=== PATIENT | male | born 1940 | race Caucasian/White ===

== ENCOUNTER 2018-08-09 18:05 | Inpatient (IN) | payer OTHER ==
[~2018-08-09] VITALS: Ht 182.9 cm; Wt 58.1 kg
[~2018-08-09 18:05] MED LIST: HYDURE500 PO; PAIN PILL
[2018-08-09 18:49] LABS: PCO2 Arterial 44.6 mmHg (35-45); PO2 Arterial 63.1 mmHg (80-100); pH Blood Arterial 7.38 (7.35-7.45)
[2018-08-09 18:55] LABS: BASOPHILS ABSOLUTE AUTO 0.09 K/mm3 (0.00-0.23); BASOPHILS PERCENT AUTO 0 % (0-2); EOSINOPHILS PERCENT AUTO 0 % (0-6); Hematocrit 54.2 % (37.0-53.0); Hemoglobin 17.5 g/dL (13.5-17.5); IMMATURE GRAN ABSOLUTE AUTO 0.22 K/mm3 (0.00-0.10); IMMATURE GRAN PERCENT AUTO 1 % (0-1); LYMPHOCYTES ABSOLUTE AUTO 1.29 K/mm3 (0.84-5.20); LYMPHOCYTES PERCENT AUTO 5 % (21-46); MONOCYTES ABSOLUTE AUTO 2.18 K/mm3 (0.16-1.47); MONOCYTES PERCENT AUTO 9 % (4-13); Mean Corpuscular HGB Conc 32.3 g/dL (31.5-36.5); Mean Corpuscular Volume 96 fL (80-100); Mean Platelet Volume 10.1 fL (9.1-12.4); NEUTROPHILS PERCENT AUTO 84 % (41-73); Platelet Count 482 K/mm3 (150-400); RDW Coefficient Variation 14.2 % (11.7-14.2); RDW Standard Deviation 51.3 fL (35.1-46.3); Red Blood Cell Count 5.65 M/mm3 (4.30-5.90); White Blood Cell Count 23.78 K/mm3 (4.00-11.30)
[2018-08-09 19:05] LABS: Alanine Aminotransfer (ALT/SGP 17 U/L (12-78); Albumin, Blood 2.7 g/dL (3.4-5.0); Albumin/Globulin Ratio 0.7 (0.8-1.8); Alk Phos 62 U/L (50-136); Anion Gap 14 mmol/L (6-16); Aspartate Aminotrans (AST/SGOT 40 U/L (12-37); Bilirubin, Total 0.8 mg/dL (0.1-1.0); Blood Urea Nitrogen 15 mg/dL (8-24); Bun/Creatinine Ratio 21.1 (12.0-20.0); CO2, Blood 17 mmol/L (21-32); Calcium, Blood 6.2 mg/dL (8.5-10.1); Chloride, Blood 96 mmol/L (98-108); Creatinine, Blood 0.71 mg/dL (0.60-1.20); Globulin, Blood 4.1 g/dL (2.2-4.0); Glomerular Filtration Rate >60 (60-); Glucose, Blood 65 mg/dL (70-99); Potassium, Blood 4.7 mmol/L (3.5-5.5); Sodium, Blood 127 mmol/L (136-145); Total Protein, Blood 6.8 g/dL (6.4-8.2); Troponin I <0.015 ng/mL (0.000-0.040)
[2018-08-09 22:37] LABS: Influenza A Positive (NEGATIVE); Influenza B Negative (NEGATIVE)
[2018-08-10 03:58] LABS: Hematocrit 48.2 % (37.0-53.0); Hemoglobin 15.6 g/dL (13.5-17.5); Mean Corpuscular HGB 31.1 pg (26.0-34.0); Mean Corpuscular HGB Conc 32.4 g/dL (31.5-36.5); Mean Corpuscular Volume 96 fL (80-100); Mean Platelet Volume 9.9 fL (9.1-12.4); Platelet Count 359 K/mm3 (150-400); RDW Coefficient Variation 14.4 % (11.7-14.2); RDW Standard Deviation 50.6 fL (35.1-46.3); Red Blood Cell Count 5.02 M/mm3 (4.30-5.90); White Blood Cell Count 17.13 K/mm3 (4.00-11.30)
[2018-08-10 04:13] LABS: International Normalized Ratio 1.09; Prothrombin Time Results 11.5 Sec (9.7-11.5)
[2018-08-10 04:25] LABS: Anion Gap 6 mmol/L (6-16); Blood Urea Nitrogen 20 mg/dL (8-24); Bun/Creatinine Ratio 24.8 (12.0-20.0); CO2, Blood 26 mmol/L (21-32); Calcium, Blood 7.1 mg/dL (8.5-10.1); Chloride, Blood 98 mmol/L (98-108); Creatinine, Blood 0.81 mg/dL (0.60-1.20); Glomerular Filtration Rate >60 (60-); Glucose, Blood 191 mg/dL (70-99); Potassium, Blood 4.1 mmol/L (3.5-5.5); Sodium, Blood 130 mmol/L (136-145)
--- NOTE | 2018-08-10 14:23 | NUR ---
NOTE PT VISITING WITH FAMILY. SR. VSS. UNSTEADY WHEN UP. BSC D/T OXYGEN REQUIREMENTS. LUNGS DECREASED T/O. NO COUGH NOTED. BED ALARM ON D/T MULIPLE EVENTS OF CLIMBING OOB. PT CAN WORK THE REMOTE FOR THE TV BUT CHOICES TO NOT USE THE NURSE CALL BUTTON WHEN HE GETS UP. PT HAS REFUSED TO TAKE HIS JEANS OFF. FAMILY OFFERD TO BRING SWEATS IN. HE DECLINED. CIWA 0. PT DID DRINK THE BEER ON HIS LUNCH TRAY. CONTINUE POT.
[2018-08-11 04:22] LABS: Hematocrit 44.7 % (37.0-53.0); Hemoglobin 14.5 g/dL (13.5-17.5); Mean Corpuscular HGB 31.3 pg (26.0-34.0); Mean Corpuscular HGB Conc 32.4 g/dL (31.5-36.5); Mean Corpuscular Volume 96 fL (80-100); Mean Platelet Volume 10.6 fL (9.1-12.4); Platelet Count 368 K/mm3 (150-400); RDW Coefficient Variation 14.1 % (11.7-14.2); RDW Standard Deviation 50.7 fL (35.1-46.3); Red Blood Cell Count 4.64 M/mm3 (4.30-5.90); White Blood Cell Count 22.93 K/mm3 (4.00-11.30)
[2018-08-11 04:41] LABS: Anion Gap 7 mmol/L (6-16); Blood Urea Nitrogen 15 mg/dL (8-24); Bun/Creatinine Ratio 22.2 (12.0-20.0); CO2, Blood 24 mmol/L (21-32); Chloride, Blood 99 mmol/L (98-108); Creatinine, Blood 0.68 mg/dL (0.60-1.20); Glomerular Filtration Rate >60 (60-); Glucose, Blood 205 mg/dL (70-99); Potassium, Blood 3.8 mmol/L (3.5-5.5); Sodium, Blood 130 mmol/L (136-145)
[2018-08-11 05:00] LABS: BAND PERCENT MAN 17 % (0-8); BASOPHILS PERCENT MAN 0 % (0-2); EOSINOPHILS PERCENT MAN 0 % (0-6); LYMPHOCYTES ABSOLUTE MAN 0.91 K/mm3 (0.84-5.20); LYMPHOCYTES PERCENT MAN 4 % (21-46); METAMYELOCYTE ABSOLUTE MAN 0.22 K/mm3 (0.00-0.00); METAMYELOCYTE PERCENT MAN 1 % (0-0); MONOCYTES ABSOLUTE MAN 0.45 K/mm3 (0.16-1.47); MONOCYTES PERCENT MAN 2 % (4-13); NEUTROPHILS ABSOLUTE MAN 21.32 K/mm3 (1.96-9.15); SEG NEUTROPHILS PERCENT MAN 76 % (41-73); TOTAL CELLS COUNTED 100
--- NOTE | 2018-08-11 17:28 | NUR ---
PT ARRIVED TO UNIT FROM PCU. RESTING IN BED. DENIES PAIN, N/V AND SOB. DENIES ANY NEEDS AT THIS TIME. CALL LIGHT IN REACH.
[2018-08-12 05:12] LABS: BASOPHILS ABSOLUTE AUTO 0.04 K/mm3 (0.00-0.23); BASOPHILS PERCENT AUTO 0 % (0-2); EOSINOPHILS PERCENT AUTO 0 % (0-6); Hematocrit 47.1 % (37.0-53.0); Hemoglobin 15.3 g/dL (13.5-17.5); IMMATURE GRAN ABSOLUTE AUTO 0.35 K/mm3 (0.00-0.10); IMMATURE GRAN PERCENT AUTO 1 % (0-1); LYMPHOCYTES PERCENT AUTO 3 % (21-46); MONOCYTES ABSOLUTE AUTO 0.28 K/mm3 (0.16-1.47); MONOCYTES PERCENT AUTO 1 % (4-13); Mean Corpuscular HGB 30.8 pg (26.0-34.0); Mean Corpuscular HGB Conc 32.5 g/dL (31.5-36.5); Mean Corpuscular Volume 95 fL (80-100); Mean Platelet Volume 10.9 fL (9.1-12.4); NEUTROPHILS ABSOLUTE AUTO 23.62 K/mm3 (1.96-9.15); NEUTROPHILS PERCENT AUTO 94 % (41-73); Platelet Count 377 K/mm3 (150-400); RDW Coefficient Variation 14.1 % (11.7-14.2); RDW Standard Deviation 49.6 fL (35.1-46.3); Red Blood Cell Count 4.96 M/mm3 (4.30-5.90); White Blood Cell Count 25.09 K/mm3 (4.00-11.30)
[2018-08-12 05:42] LABS: Albumin, Blood 2.5 g/dL (3.4-5.0); Anion Gap 6 mmol/L (6-16); Blood Urea Nitrogen 14 mg/dL (8-24); Bun/Creatinine Ratio 21.9 (12.0-20.0); CO2, Blood 25 mmol/L (21-32); Calcium, Blood 7.5 mg/dL (8.5-10.1); Chloride, Blood 100 mmol/L (98-108); Creatinine, Blood 0.64 mg/dL (0.60-1.20); Glomerular Filtration Rate >60 (60-); Glucose, Blood 128 mg/dL (70-99); Phosphorus, Blood 1.6 mg/dL (2.5-4.9); Potassium, Blood 4.4 mmol/L (3.5-5.5); Sodium, Blood 131 mmol/L (136-145)
--- NOTE | 2018-08-12 05:57 | NUR ---
SUMMARY PT SLEPT MOST OF NIGHT. NO S/S/ OF DTS AT PRESENT.REPORTS BREATHING IS CONTINUING TO IMPROVE SINCE ADMIT.
--- NOTE | 2018-08-12 17:28 | NUR ---
SUMMARY NO ACUTE CHANGES T/O SHIFT. PT BECOMES SOB W/EXERTION. HAS HARSH HACKING COUGH AT TIMES. POOR APPETITE. VSS. CALL LIGHT IN REACH. USES CALL LIGHT APPROPRIATELY.
[2018-08-13 05:04] LABS: BASOPHILS ABSOLUTE AUTO 0.05 K/mm3 (0.00-0.23); BASOPHILS PERCENT AUTO 0 % (0-2); EOSINOPHILS PERCENT AUTO 0 % (0-6); Hematocrit 47.3 % (37.0-53.0); Hemoglobin 15.4 g/dL (13.5-17.5); IMMATURE GRAN ABSOLUTE AUTO 0.48 K/mm3 (0.00-0.10); IMMATURE GRAN PERCENT AUTO 2 % (0-1); LYMPHOCYTES PERCENT AUTO 4 % (21-46); MONOCYTES ABSOLUTE AUTO 0.31 K/mm3 (0.16-1.47); MONOCYTES PERCENT AUTO 1 % (4-13); Mean Corpuscular HGB 30.9 pg (26.0-34.0); Mean Corpuscular HGB Conc 32.6 g/dL (31.5-36.5); Mean Corpuscular Volume 95 fL (80-100); Mean Platelet Volume 10.7 fL (9.1-12.4); NEUTROPHILS ABSOLUTE AUTO 19.77 K/mm3 (1.96-9.15); NEUTROPHILS PERCENT AUTO 93 % (41-73); Platelet Count 421 K/mm3 (150-400); RDW Coefficient Variation 14.1 % (11.7-14.2); RDW Standard Deviation 49.4 fL (35.1-46.3); Red Blood Cell Count 4.98 M/mm3 (4.30-5.90); White Blood Cell Count 21.41 K/mm3 (4.00-11.30)
--- NOTE | 2018-08-13 05:07 | NUR ---
PT HAD NO ACUTE CHANGES T/O NIGHT. SATS >90% ON 3LNC. PT DENIED SOB AT REST, IS DYPSNEIC W/EXERTION. COUGH OCC PROD W/THICK SPUTUM PER PT. I/S USE ENC. PT DENIED PAIN/N/V, CONT TO REP DEC APPETITE. CIWAA 1. PT USING CALL LIGHT FOR ASSISTANCE, WILL CONT TO MONITOR UNTIL REP GIVEN TO ONCOMING RN.
[2018-08-13 05:32] LABS: Albumin, Blood 2.4 g/dL (3.4-5.0); Anion Gap 5 mmol/L (6-16); Blood Urea Nitrogen 16 mg/dL (8-24); Bun/Creatinine Ratio 27.9 (12.0-20.0); CO2, Blood 26 mmol/L (21-32); Calcium, Blood 7.3 mg/dL (8.5-10.1); Chloride, Blood 102 mmol/L (98-108); Creatinine, Blood 0.57 mg/dL (0.60-1.20); Glomerular Filtration Rate >60 (60-); Glucose, Blood 113 mg/dL (70-99); Phosphorus, Blood 2.4 mg/dL (2.5-4.9); Potassium, Blood 4.3 mmol/L (3.5-5.5); Sodium, Blood 133 mmol/L (136-145)
--- NOTE | 2018-08-13 15:54 | NUR ---
patients daughter taking patient for a ride in a wheelchair. patient wearing mask outside of room and discussed with patient and patients daughter the need to wear mask
--- NOTE | 2018-08-13 18:14 | NUR ---
SUMMARY PATIENT DENIES ANY PAIN OR SHORTNESS OF BREATH. PATIENT HOPING TO BE DISCHARGED HOME TOMORROW. CIWA SCORE 0 THROUGHOUT SHIFT
[2018-08-14 06:00] LABS: BASOPHILS ABSOLUTE AUTO 0.07 K/mm3 (0.00-0.23); BASOPHILS PERCENT AUTO 0 % (0-2); EOSINOPHILS PERCENT AUTO 0 % (0-6); Hematocrit 50.9 % (37.0-53.0); Hemoglobin 16.8 g/dL (13.5-17.5); IMMATURE GRAN ABSOLUTE AUTO 0.66 K/mm3 (0.00-0.10); IMMATURE GRAN PERCENT AUTO 4 % (0-1); LYMPHOCYTES ABSOLUTE AUTO 0.66 K/mm3 (0.84-5.20); LYMPHOCYTES PERCENT AUTO 4 % (21-46); MONOCYTES ABSOLUTE AUTO 0.57 K/mm3 (0.16-1.47); MONOCYTES PERCENT AUTO 3 % (4-13); Mean Corpuscular HGB 30.9 pg (26.0-34.0); Mean Corpuscular Volume 94 fL (80-100); Mean Platelet Volume 10.5 fL (9.1-12.4); NEUTROPHILS ABSOLUTE AUTO 14.87 K/mm3 (1.96-9.15); NEUTROPHILS PERCENT AUTO 88 % (41-73); Platelet Count 469 K/mm3 (150-400); RDW Coefficient Variation 14.2 % (11.7-14.2); RDW Standard Deviation 48.2 fL (35.1-46.3); Red Blood Cell Count 5.44 M/mm3 (4.30-5.90); White Blood Cell Count 16.83 K/mm3 (4.00-11.30)
--- NOTE | 2018-08-14 06:10 | NUR ---
SHIFT SUMAMRY PT RESTED WELL T/O NIGHT. AAOX4. DENIES PAIN/NAUSEA. OXYGEN INCREASED THIS AM FROM 1.5L TO 2L POST AM VITAL SIGNS. PT ENCOURAGED TO DEEP BREATHE + USE IS/FLUTTER TOLERATED. PT RESTING WELL THIS AM. CALL LIGHT IN REACH + PT USES FOR ASSISTANCE.
[2018-08-14 06:56] LABS: Albumin, Blood 2.7 g/dL (3.4-5.0); Anion Gap 6 mmol/L (6-16); Blood Urea Nitrogen 17 mg/dL (8-24); Bun/Creatinine Ratio 26.9 (12.0-20.0); CO2, Blood 29 mmol/L (21-32); Calcium, Blood 7.6 mg/dL (8.5-10.1); Chloride, Blood 99 mmol/L (98-108); Creatinine, Blood 0.63 mg/dL (0.60-1.20); Glomerular Filtration Rate >60 (60-); Glucose, Blood 81 mg/dL (70-99); Phosphorus, Blood 2.7 mg/dL (2.5-4.9); Potassium, Blood 4.1 mmol/L (3.5-5.5); Sodium, Blood 134 mmol/L (136-145)
--- NOTE | 2018-08-14 09:26 | NUR ---
DR CANCINO RECENTLY HERE, REPORTS LS COARSE, O2 INCREASED TO 3L02NC. PT BIOX 90%
--- NOTE | 2018-08-14 10:57 | NUR ---
RECENT LUNG SOUNDS O2 LEVEL PT LS NOT COARSE AT THIS TIME. PT BEEN RESTING IN BED. PT REPORTS SOB BETTER AT THIS TIME. PT O2 LEVEL 97% ON 3L02NC, DECREASED O2 TO 2LO2NC BIOX 96%. DISCUSSED ORDERS WITH RT.
--- NOTE | 2018-08-14 16:25 | NUR ---
SHIFT SUMMARY PT BEEN EATING AND DRINKING, VOIDING. BEEN ASSISTED WITH ADL'S PRN. RT BEEN IN ROOM AND EDUCATED PT. PT BEEN OUT OF ROOM IN W/C WITH CORRECT PRECAUTIONS IN PLACE. PT REPORTS "BREATHING ABOUT THE SAME". PT 02 LEVEL 1.5-2 NC. WHEN PT WAS OUT OF ROOM PT HAD O2 IN PLACE. FAMILY IN ROOM MOST OF DAY.
--- NOTE | 2018-08-14 17:38 | NUR ---
PT REQ TO NOT HAVE CBG'S CHECKED ANY LONGER. DISCUSSED WITH DR CANCINO. SEE ORDERS.
[2018-08-15 05:00] LABS: Hematocrit 53.7 % (37.0-53.0); Hemoglobin 17.4 g/dL (13.5-17.5); Mean Corpuscular HGB 30.7 pg (26.0-34.0); Mean Corpuscular HGB Conc 32.4 g/dL (31.5-36.5); Mean Corpuscular Volume 95 fL (80-100); Mean Platelet Volume 10.5 fL (9.1-12.4); Platelet Count 598 K/mm3 (150-400); RDW Coefficient Variation 13.8 % (11.7-14.2); RDW Standard Deviation 48.4 fL (35.1-46.3); Red Blood Cell Count 5.67 M/mm3 (4.30-5.90); White Blood Cell Count 22.26 K/mm3 (4.00-11.30)
--- NOTE | 2018-08-15 05:06 | NUR ---
SHIFT SUMMARY PT RESTED WELL T/O NIGHT. AAOX4. PT DENIES DISCOMFORT/NAUSEA. SOB WITH EXERTION + COUGHING SPELLS. NON-PRODUCTIVE COUGH THIS SHIFT. 1.5L VIA NC, LUNG SOUNDS COARSE T/O. PT ENCOURAGED TO USE IS + FLUTTER. CALL LIGHT IN REACH + PT USES FOR ASSISTANCE.
[2018-08-15 05:27] LABS: Anion Gap 4 mmol/L (6-16); Blood Urea Nitrogen 17 mg/dL (8-24); Bun/Creatinine Ratio 25.5 (12.0-20.0); CO2, Blood 31 mmol/L (21-32); Calcium, Blood 7.7 mg/dL (8.5-10.1); Chloride, Blood 98 mmol/L (98-108); Creatinine, Blood 0.67 mg/dL (0.60-1.20); Glomerular Filtration Rate >60 (60-); Glucose, Blood 122 mg/dL (70-99); Potassium, Blood 4.4 mmol/L (3.5-5.5); Sodium, Blood 133 mmol/L (136-145)
[2018-08-15] MEDS ORDERED: ACET325 PO (12:12)
[2018-08-15] MEDS ORDERED: GUAIFENESIN ER600 MG PO (12:13)
[2018-08-15] MEDS ORDERED: FOLI1 PO (12:13)
[2018-08-15] MEDS ORDERED: OMEPRAZOLE20 MG PO (12:16)
[2018-08-15] MEDS ORDERED: LEVO750 PO (12:17)
[2018-08-15] MEDS ORDERED: DULERA 200 MCG/13 GM INH (12:47)
[2018-08-15] MEDS ORDERED: DELTASONE20 MG PO (12:50)
[2018-08-15] MEDS ORDERED: TIOT18 INH (12:50)
[2018-08-15] MEDS ORDERED: ALBU3IS INH (12:55)
--- NOTE | 2018-08-15 15:25 | NUR ---
PATIENT D/C'D HOME AT THIS TIME WITH DAUGHTER; BOTH STATE UNDERSTANDING OF MEDICATIONS, OXYGEN, NEBS, F/U APPTS, ETC. [facility] DELIVERED PORTABLE O2. PATIENT W/O C/O AT THIS TIME.
== END 2018-08-15 15:25 | disposition home or self-care (01) | DRG 871 ==
LOC: ER 18:05 → PCU 19:53 → SURS 08-11 17:23
PROVIDERS: Emergency Medicine; Family Medicine; Internal Medicine; Nurse Practitioner Acute Care; ADMIT Internal Medicine
PROC: 5A09357 Assistance with Respiratory Ventilation, Less than 24 Consecutive Hours, Continuous Positive Airway Pressure (ICD-10-PCS; principal; 2018-08-09)
DX: A41.9 Sepsis, unspecified organism (principal); J96.01 Acute respiratory failure with hypoxia; E43 Unspecified severe protein-calorie malnutrition; J18.1 Lobar pneumonia, unspecified organism; E87.1 Hypo-osmolality and hyponatremia; Z68.1 Body mass index [BMI] 19.9 or less, adult; R64 Cachexia; J43.9 Emphysema, unspecified; F17.210 Nicotine dependence, cigarettes, uncomplicated; E16.2 Hypoglycemia, unspecified; F10.20 Alcohol dependence, uncomplicated; E87.8 Other disorders of electrolyte and fluid balance, not elsewhere classified; J10.1 Influenza due to other identified influenza virus with other respiratory manifestations; R65.20 Severe sepsis without septic shock
CPT/HCPCS: 36415; 36600; 71045; 80048; 80053; 80069; 82330; 82803; 82947; 83605; 83735; 83880; 84145; 84484; 85025; 85027; 85610; 87040; 87804; 93005; 93010; 94640; 94644; 94660; 94667; 94760; 94761; 94762; 96365; 96366; 96368; 96372-59; 96375; 98960; 99285-25; J0456; J0696; J1100; J1650; J1956; J2920; J2930; J3411; J3475; J3480; J7030; J7042; J7050

== ENCOUNTER 2020-06-05 12:59 | Inpatient (IN) | payer OTHER ==
[~2020-06-05] VITALS: Ht 177.8 cm; Wt 50.1 kg
[~2020-06-05 12:59] MED LIST changes: +ACET325 PO; +ALBU3IS INH; +DELTASONE20 MG PO; +DULERA 200 MCG/13 GM INH; +FOLI1 PO; +GUAIFENESIN ER600 MG PO; +LEVO750 PO; +OMEPRAZOLE20 MG PO; +TIOT18 INH
[2020-06-05 13:33] LABS: BASOPHILS ABSOLUTE AUTO 0.16 K/mm3 (0.00-0.23); BASOPHILS PERCENT AUTO 1 % (0-2); EOSINOPHILS ABSOLUTE AUTO 0.04 K/mm3 (0.00-0.68); EOSINOPHILS PERCENT AUTO 0 % (0-6); Hematocrit 42.4 % (37.0-53.0); IMMATURE GRAN ABSOLUTE AUTO 0.28 K/mm3 (0.00-0.10); IMMATURE GRAN PERCENT AUTO 1 % (0-1); LYMPHOCYTES ABSOLUTE AUTO 0.78 K/mm3 (0.84-5.20); LYMPHOCYTES PERCENT AUTO 2 % (21-46); MONOCYTES ABSOLUTE AUTO 1.49 K/mm3 (0.16-1.47); MONOCYTES PERCENT AUTO 4 % (4-13); Mean Corpuscular HGB 28.8 pg (26.0-34.0); Mean Corpuscular HGB Conc 30.7 g/dL (31.5-36.5); Mean Corpuscular Volume 94 fL (80-100); Mean Platelet Volume 10.3 fL (9.1-12.4); NEUTROPHILS PERCENT AUTO 92 % (41-73); RDW Standard Deviation 48.2 fL (35.1-46.3); Red Blood Cell Count 4.51 M/mm3 (4.30-5.90); White Blood Cell Count 34.45 K/mm3 (4.00-11.30)
[2020-06-05 13:39] LABS: Platelet Count 1280 K/mm3 (150-400)
[2020-06-05 13:46] LABS: Alanine Aminotransfer (ALT/SGP 12 U/L (12-78); Albumin/Globulin Ratio 0.9 (0.8-1.8); Alk Phos 60 U/L (50-136); Anion Gap 4 mmol/L (6-16); Aspartate Aminotrans (AST/SGOT 15 U/L (12-37); Bilirubin, Total 0.6 mg/dL (0.1-1.0); Blood Urea Nitrogen 31 mg/dL (8-24); Bun/Creatinine Ratio 47.8 (12.0-20.0); CO2, Blood 33 mmol/L (21-32); Calcium, Blood 8.6 mg/dL (8.5-10.1); Chloride, Blood 102 mmol/L (98-108); Creatinine, Blood 0.65 mg/dL (0.60-1.20); Globulin, Blood 3.4 g/dL (2.2-4.0); Glomerular Filtration Rate >60 (60-); Glucose, Blood 100 mg/dL (70-99); Potassium, Blood 3.6 mmol/L (3.5-5.5); Sodium, Blood 139 mmol/L (136-145); Total Protein, Blood 6.4 g/dL (6.4-8.2); Troponin I <0.015 ng/mL (0.000-0.040)
[2020-06-05 15:31] LABS: Influenza A, PCR Negative (NEGATIVE); Influenza B, PCR Negative (NEGATIVE); Resp Syncytial Virus, PCR Negative (NEGATIVE); SARS-Cov-2 (COVID-19) PCR, MMC Negative (NEGATIVE)
[2020-06-05 18:15] LABS: Source, Urine Clean Catch
[2020-06-05 18:23] LABS: Appearance, Urine Clear (Clear); Bilirubin, Urine Neg (Neg); Blood, Urine 1+ (Neg); Color, Urine Yellow (P-Yellow); Glucose Qualitative, Urine Neg (Neg); Ketones, Urine 2+ (Neg); Leukocyte Esterase, Urine Neg (Neg); Nitrite, Urine Neg (Neg); Protein, Urine 2+ (Neg); Urobilinogen, Urine NORM (Normal)
[2020-06-05 18:32] LABS: Bacteria Rare /hpf; Squamous Epithelial Cells Not Seen /hpf (Few); White Blood Cells, Urine 0-2 /hpf (0-5)
[2020-06-05 18:37] LABS: Mucus Light (0-Heavy)
--- NOTE | 2020-06-05 19:26 | NUR ---
ADMIT NOTE RECEIVED REPORT FROM JOSE MANUEL FISHER IN ED. PT TO ROOM VIA JOSEF; 1 PERSON ASSIST TO BED. PT AND SON ORIENTED TO ROOM AND CALL LIGHT. EDUCATED ON FALL RISK AND USE OF BED ALARM. PT ALERT AND ORIENTED x4; COOPERATIVE WITH CARE. CONSTANTLY ASKING TO TURN ON THE FOOTBALL GAME. PT DENIES SOB; TACHYPNIC, LABORED BREATHING, RETRACTING INTERCOSTAL AND SUBSTERNAL; LS DIM BASES; SPO2 >92% ON 3L O2 VIA NC. PT REPORTS O2 USE AT HOME 3-4L NEEDED. PT REPORTS RECTAL PAIN AND COCCYX PAIN, REPOSITIONED PT FOR COMFORT. REDNESS TO COCCYX NOTED; MEPILEX IN PLACE; PICTURES IN CHART. FOAM PLACED TO BILATERAL HEELS. SMALL SMEAR NOTED ON ASSESSMENT, PT CLEANED; STOOL BROWN AND PASTY. PER SONGRAEME, AT BEDSIDE, SISTER MARIANO IS PT POA AND HAS COPY OF ADVANCED DIRECTIVE AND WILL BRING IN COPY TOMORROW. VSS. NO OTHER ACUTE CHANGES NOTED DURING SHIFT. REPORT GIVEN TO ONCOMING RN. DURING BEDSIDE REPORT PT ATTEMPTING TO EAT MECH/SOFT DINNER AND COUGHING WITH EACH BITE; TRAY REMOVED.
[2020-06-06 03:47] LABS: BASOPHILS ABSOLUTE AUTO 0.15 K/mm3 (0.00-0.23); BASOPHILS PERCENT AUTO 1 % (0-2); EOSINOPHILS ABSOLUTE AUTO 0.18 K/mm3 (0.00-0.68); EOSINOPHILS PERCENT AUTO 1 % (0-6); Hemoglobin 11.8 g/dL (13.5-17.5); IMMATURE GRAN ABSOLUTE AUTO 0.13 K/mm3 (0.00-0.10); IMMATURE GRAN PERCENT AUTO 1 % (0-1); LYMPHOCYTES ABSOLUTE AUTO 1.14 K/mm3 (0.84-5.20); LYMPHOCYTES PERCENT AUTO 5 % (21-46); MONOCYTES ABSOLUTE AUTO 1.01 K/mm3 (0.16-1.47); MONOCYTES PERCENT AUTO 5 % (4-13); Mean Corpuscular HGB 28.6 pg (26.0-34.0); Mean Corpuscular HGB Conc 30.3 g/dL (31.5-36.5); Mean Corpuscular Volume 95 fL (80-100); Mean Platelet Volume 10.3 fL (9.1-12.4); NEUTROPHILS ABSOLUTE AUTO 19.67 K/mm3 (1.96-9.15); NEUTROPHILS PERCENT AUTO 88 % (41-73); RDW Coefficient Variation 13.9 % (11.7-14.2); RDW Standard Deviation 48.7 fL (35.1-46.3); Red Blood Cell Count 4.12 M/mm3 (4.30-5.90); White Blood Cell Count 22.28 K/mm3 (4.00-11.30)
[2020-06-06 03:50] LABS: Platelet Count 1144 K/mm3 (150-400)
[2020-06-06 04:06] LABS: Magnesium, Blood 2.5 mg/dL (1.6-2.4)
[2020-06-06 04:09] LABS: Alanine Aminotransfer (ALT/SGP <6 U/L (12-78); Albumin, Blood 2.5 g/dL (3.4-5.0); Albumin/Globulin Ratio 0.8 (0.8-1.8); Alk Phos 54 U/L (50-136); Anion Gap 4 mmol/L (6-16); Aspartate Aminotrans (AST/SGOT 7 U/L (12-37); Bilirubin, Total 0.3 mg/dL (0.1-1.0); Blood Urea Nitrogen 28 mg/dL (8-24); Bun/Creatinine Ratio 34.8 (12.0-20.0); CO2, Blood 35 mmol/L (21-32); Chloride, Blood 105 mmol/L (98-108); Globulin, Blood 3.2 g/dL (2.2-4.0); Glomerular Filtration Rate >60 (60-); Glucose, Blood 94 mg/dL (70-99); Potassium, Blood 3.4 mmol/L (3.5-5.5); Sodium, Blood 144 mmol/L (136-145); Total Protein, Blood 5.7 g/dL (6.4-8.2)
--- NOTE | 2020-06-06 05:48 | NUR ---
SHIFT SUMMARY PT A&O X4. VSS. MONITOR SHOWS NSR, HR 70's. SPO2 > 92% ON 4L NC. CIWA: 0 T/O SHIFT. PT NOT TOLERATING MECH SOFT DINNER TRAY, CHOKING & COUGHING W/ EACH BITE TAKEN, THOUGH SITTING COMPLETELY UPRIGHT. TRAY REMOVED & PT SUPERVISED W/ SIPS OF LIQUIDS ONLY REMAINDER OF SHIFT W/ SOME COUGHING AT TIMES. PT COCCYX VERY RED. MEPILEX REMAINS IN PLACE. PT SBA TO BSC, TOLERATING WELL. Q2H REPOSITIONING WHILE IN BED. WILL CONTINUE TO MONITOR & PROVIDE CARE UNTIL REPORT OFF TO DAY SHIFT RN.
--- NOTE | 2020-06-06 14:33 | NUR ---
Patient has given this student nurse Brennan Colon permission to provide care from [phone]
--- NOTE | 2020-06-06 19:20 | NUR ---
SHIFT SUMMARY: NO ACUTE CHANGES T/OUT SHIFT. PT CONTINUES A&OX4, RESP EVEN AND UNLABORED, SINUS RHYTHM ON MONITOR. CIWA SCORES CONTINUE TO BE 0, NO MEDICATION INTERVENTION REQUIRED. PT REPOSITIONED TOLERATED, SPEECH THERAPY EVAL HAS BEEN ORDERED. REPORT GIVEN TO JOSE MANUEL MARISCAL TO ASSUME CARE OF PT.
[2020-06-07 03:46] LABS: BASOPHILS ABSOLUTE AUTO 0.11 K/mm3 (0.00-0.23); BASOPHILS PERCENT AUTO 1 % (0-2); EOSINOPHILS PERCENT AUTO 0 % (0-6); Hematocrit 35.3 % (37.0-53.0); Hemoglobin 10.9 g/dL (13.5-17.5); IMMATURE GRAN ABSOLUTE AUTO 0.17 K/mm3 (0.00-0.10); IMMATURE GRAN PERCENT AUTO 1 % (0-1); LYMPHOCYTES ABSOLUTE AUTO 0.69 K/mm3 (0.84-5.20); LYMPHOCYTES PERCENT AUTO 3 % (21-46); MONOCYTES ABSOLUTE AUTO 0.45 K/mm3 (0.16-1.47); MONOCYTES PERCENT AUTO 2 % (4-13); Mean Corpuscular HGB Conc 30.9 g/dL (31.5-36.5); Mean Corpuscular Volume 94 fL (80-100); Mean Platelet Volume 10.5 fL (9.1-12.4); NEUTROPHILS ABSOLUTE AUTO 22.42 K/mm3 (1.96-9.15); NEUTROPHILS PERCENT AUTO 94 % (41-73); RDW Standard Deviation 48.2 fL (35.1-46.3); Red Blood Cell Count 3.76 M/mm3 (4.30-5.90); White Blood Cell Count 23.84 K/mm3 (4.00-11.30)
[2020-06-07 03:52] LABS: Platelet Count 1051 K/mm3 (150-400)
[2020-06-07 04:06] LABS: Anion Gap 5 mmol/L (6-16); Blood Urea Nitrogen 23 mg/dL (8-24); Bun/Creatinine Ratio 38.9 (12.0-20.0); CO2, Blood 30 mmol/L (21-32); Calcium, Blood 7.9 mg/dL (8.5-10.1); Chloride, Blood 103 mmol/L (98-108); Creatinine, Blood 0.59 mg/dL (0.60-1.20); Glomerular Filtration Rate >60 (60-); Glucose, Blood 150 mg/dL (70-99); Potassium, Blood 4.2 mmol/L (3.5-5.5); Sodium, Blood 138 mmol/L (136-145)
--- NOTE | 2020-06-07 06:32 | NUR ---
SHIFT SUMMARY PT A&O X4. VSS. SPO2 > 92% ON 3L NC. MONITOR SHOWING SR, HR 70's-80's. NO EVENTS OVER NIGHT. NS GTT INFUSING PER ORDERS. CIWA: 0. PT AWAITING MD GARZA CONSULT.
--- NOTE | 2020-06-07 09:54 | NUR ---
ASSUMED CARE, MORNING UPDATE PT WAS AWAKE AND PARTICIPATED DURING MORNING REPORT. PT WAS REPORTED HAVING SOME DIFFICULTLY SWALLOWING AFTER ADMISSION BUT NONE SINCE. PT WAS OBSERVED DURING BREAKFAST AND DID NOT HAVE AN ISSUE. WHILE TAKING MORNING MEDICATIONS PT BEGAN TO CHOKE AND COUGH. RN ERICH GAVE ADDITIONAL MEDS IN APPLESAUCE AND PT CONTINUED TO COUGH; REMAINING MEDS WERE WASTED AND PT WAS OFFERED THICKENED WATER AN ALTERNATIVE. PT REFUSED THICKENED WATER AND IT WAS EXPLAINED THAT HE WAS GOING TO BE KEPT NPO UNTIL SPEECH THERAPY WAS ABLE TO EVALUATE HIM THIS MORNING; PT GAVE VERBAL UNDERSTANDING AND AGREED. VS STABLE; PT ON 4L O2 VIA NC TO MAINTAIN SATS ABOVE 92%. PT RESTING IN BED AWAITING SPEECH THERAPY AT THIS TIME
--- NOTE | 2020-06-07 11:20 | NUR ---
OXYGEN PT HAS BEEN SLEEPING WITH HIS MOUTH OPEN; 3L WAS NOT SUSTAINING ADEQUATE OXYGENATION; I TITRATED O2 UP GRADUALLY TO 5L AND PLACED THE CANNULA IN HIS MOUTH WHILE SLEEPING; O2 SAT IS NOW ABOVE 92%.
--- NOTE | 2020-06-07 14:35 | NUR ---
SWALLOW EVALUATION PT COMPLETED A SWALLOW EVAL THIS MORNING WITH SPEECH THERAPY AND IT WAS DETERMINED THAT THE PT IS NOT TO TAKE ANYTHING PO AT THIS TIME HE IS A HIGH ASPIRATION RISK. PT IS NOW ON CLINIMEX AND AWAITING A NUTIRITION CONSULTATION TO REVIEW NEXT STEPS
--- NOTE | 2020-06-07 15:33 | NUR ---
NUTRITION CONSULT SPOKE ON THE PHONE WITH HOSTESS CASHIER WHO RECOMMENDED FAT EMULSION IN ADDITION TO THE CLINIMIX. HOSTESS CASHIER ALSO SUGGESTED A DOBHOFF OR ANOTHER FORM OF TUBE FEEDING AND THAT PALLIATIVE CARE COULD HELP LAY OUT ALL OF THE OPTIONS FOR THE PATIENT. PALLIATIVE CARE IS CONSULTED AND NUTRITION WILL VISIT WITH PT TOMORROW
[2020-06-07 16:06] LABS: Vancomycin, Trough 5.9 ug/mL (5.0-10.0)
--- NOTE | 2020-06-07 17:15 | NUR ---
Reviewed chart and discussed case with Bedside JOSE MANUEL Alejo. ST has Pt NPO at this time. Pt resting in bed upon arrival. Daughter Cleo at bedside. Pt A&O and denies pain at this time. Pt reports dyspnea has improved. Engaged in therapeutic listening as Pt expresses frustration due to not being allowed to eat. Discussed ST evaluation and plan for continued therapy at this time. Discussed the importance of thinking about future if unsafe swallow becomes permanent. Pt expresses feeling of not wanting tube feedings. Pt discusses importance of eating food and not having a good quality of life if inability to eat. Continued therapeutic listening. Suggested the importance of ST recommendations and waiting for further information. Engaged in therapeutic discussion regarding Pt's COPD and the importance of planning for the future as disease progresses. Educated on disease process including trajector of disease. Discussed hospice as an option at some point of disease process. Engaged in therapeutic discussion regarding code status. Educated on life sustaining treatment including risk factors. Pt reports wanting to be DNR. Daughter Cleo in agreement. Provided POLST for Pt to consider completing. Educated on each section to complete including meaning of options. Daughter will assist Pt in completing POLST. Pt and daughter agreeable for continued Palliative Care visits. Spoke with Bedside JOSE MANUEL Alejo and discussed case. Called and spoke with Dr Tsang. Placed code status order for DNR per V/O from Dr Tsang. Palliative Care will F/U for supportive and therapeutic visits.
--- NOTE | 2020-06-07 19:16 | NUR ---
SHIFT SUMMARY PT COMPLETED A SPEECH THERAPY EVAL THIS MORNING AND WAS MADE NPO SINCE HE IS COUGHING AND CHOKING FREQUENTLY WHILE EATING. AT THIS POINT CLINIMIX AND FAT EMULSION WAS STARTED AND PALLIATIVE CARE AND NUTIRTION WERE CONSULTED. PT WAS VERY UPSET BY THESE CHANGES AND CONTINUED TO STATE THAT HE WANTED TO EAT. PALLIATIVE CARE AND JOSE MANUEL JUNG DISCUSSED OTHER OPTIONS WITH THE PATIENT AND WITH THE DAUGHTER TO SATISFY HIS HUNGER; OPTIONS RECOMMENDED BY NUTRITION WERE DOBHOFF OR PEG TUBE FEEDINGS AND TO CONTINUE SPEECH THERAPY; PT VERBALLY EXPRESSED DISLIKE WITH THESE OPTIONS. PT STATES HE JUST WANTS TO EAT. PALLIATIVE CARE DISCUSSED COMFORT CARE VS DNR WITH THE PATIENT AND LEFT THE PATIENT AND HIS DAUGHTER WITH A POLST FORM TO FILL OUT AND DETERMINE HIS WISHES. THE PT OPTED TO BE COMFORT CARE; WANTING TO FOCUS ON QUALITY OF LIFE AT THIS POINT. JOSE MANUEL JUNG AND DAUGHTER, MARIANO, RETURNED TO THE PT ROOM TO VERIFY THE PT'S UNDERSTANDING AGAIN OF COMFORT CARE VS DNR; PT STATED HE WAS AGREEING TO STOP ALL TREATMENT AND WANTS TO EAT. PT STATES "I DON'T WANT ALL THESE TUBES AND WIRES, I WANT TO EAT AND BE DONE." DR. ALVARADO WAS CONTACTED, PT WAS PLACED ON COMFORT CARE, DR. ALVARADO EXPLAINED THAT HE WOULD MAKE THE SWITCHES TO THE MEDS IN THE MORNING AND AT THIS POINT TO COMPLETE CC INTERVENTIONS AND ALLOW THE PT TO EAT. PT IS CURRENTLY IN HIS ROOM EATING A [facility] SOFT DIET.
--- NOTE | 2020-06-07 21:27 | NUR ---
TRANSFER NOTE PT COMFORT CARE STATUS. A&O X4. PT DENIES PAIN/DISCOMFORT. PT OBSERVED EATING DINNER TRAY, COUGHING WHILE TAKING BITES, BUT HAPPY TO BE EATING. CLINIMIX GTT PLACED ON STANDBY FOR IV ABX INFUSION. PT REPORTS WANTING IV ABX CONTINUED AT THIS TIME. MEDS TO BE FURTHER ADDRESSED FOR CONTINUATION/DISCONTINUATION TOMORROW. REPORT GIVEN TO MEDICAL FLOOR RN ACCEPTING PT. PT TO BE TRANSFERRED TO [address]/ [facility] BY 2 PCT's.
--- NOTE | 2020-06-07 22:20 | NUR ---
PATIENT ARRIVED TO FLOOR FROM PCU 11. WAS TRANSFERRED TO BED USING SLIDER SHEET. ANA IS AOX3, PLEASANT AND COOPERATIVE. DENIES ANY PAIN. LUNG SOUNDS ARE VERY DIMINISHED T/O. DYSPNEA WITH EXERTION. USES URINAL IN BED. NO EDEMA NOTED. COUGH NOTED. DOES COUGH WITH FLUIDS AND FOOD. STATES HE JUST THINKS HIS THROAT MUSCLES HAVE GOTTEN WEAK. ENCOURAGED HIM TO AT LEAST DO THE CHIN TUCK WHEN DRINKING. NEW IV STARTED IN LEFT FA AND RESTARTED CLINIMIX AND FAT EMOLSUIN. OTHER IV INFUSING ANTIBOTICS. DENIES ANY NEEDS AT THIS TIME. CALL LIGHT IS IN REACH.
--- NOTE | 2020-06-08 02:41 | NUR ---
LAYING DOWN SLEEPING, OXYGEN IN HIS MOUTH, IS AWAKE BUT TRYING TO FALL ASLEEP. CALL LIGHT IS IN REACH. DENIES ANY NEEDS.
[2020-06-08 04:49] LABS: BASOPHILS ABSOLUTE AUTO 0.06 K/mm3 (0.00-0.23); BASOPHILS PERCENT AUTO 0 % (0-2); EOSINOPHILS ABSOLUTE AUTO 0.02 K/mm3 (0.00-0.68); EOSINOPHILS PERCENT AUTO 0 % (0-6); Hematocrit 36.9 % (37.0-53.0); Hemoglobin 11.2 g/dL (13.5-17.5); IMMATURE GRAN PERCENT AUTO 1 % (0-1); LYMPHOCYTES ABSOLUTE AUTO 0.57 K/mm3 (0.84-5.20); LYMPHOCYTES PERCENT AUTO 2 % (21-46); MONOCYTES ABSOLUTE AUTO 0.26 K/mm3 (0.16-1.47); MONOCYTES PERCENT AUTO 1 % (4-13); Mean Corpuscular HGB Conc 30.4 g/dL (31.5-36.5); Mean Corpuscular Volume 96 fL (80-100); Mean Platelet Volume 10.7 fL (9.1-12.4); NEUTROPHILS ABSOLUTE AUTO 24.02 K/mm3 (1.96-9.15); NEUTROPHILS PERCENT AUTO 96 % (41-73); RDW Coefficient Variation 13.9 % (11.7-14.2); RDW Standard Deviation 48.7 fL (35.1-46.3); Red Blood Cell Count 3.86 M/mm3 (4.30-5.90); White Blood Cell Count 25.13 K/mm3 (4.00-11.30)
[2020-06-08 04:59] LABS: Platelet Count 1051 K/mm3 (150-400)
[2020-06-08 05:10] LABS: Anion Gap 4 mmol/L (6-16); Blood Urea Nitrogen 23 mg/dL (8-24); Bun/Creatinine Ratio 44.3 (12.0-20.0); CO2, Blood 29 mmol/L (21-32); Calcium, Blood 7.9 mg/dL (8.5-10.1); Chloride, Blood 103 mmol/L (98-108); Creatinine, Blood 0.52 mg/dL (0.60-1.20); Glomerular Filtration Rate >60 (60-); Glucose, Blood 152 mg/dL (70-99); Potassium, Blood 4.9 mmol/L (3.5-5.5); Sodium, Blood 136 mmol/L (136-145)
--- NOTE | 2020-06-08 06:27 | NUR ---
SHIFT SUMMARY: COMFORT CARE PATIENT THAT IS CONTINUEING TO GET CLINIMEX, ANTIBOTICS. PALLATIVE CARE NURSE WILL BE ADDRESSING THIS TODAY AND DOING MED CHANGES. AOX3. LUNG SOUNDS ARE VERY DIMINISHED, COUGH IS OCCATIONAL HACKING, NO PRODUCTION. HE DOES COUGH ALL THE TIME WHEN HE IS DRINKING OR EATING. STATES HE THINKS HIS THROAT MUSCLES HAVE GOTTEN WEAK BUT STATES HE SWALLOWS JUST FINE. TRIED TO EDUCATE BUT HE IS INSISTING HE DOES NOT HAVE A SWALLOW ISSUE. VS WNL. AFEBRILE. WBC THIS AM WAS 25.13. TAKES ALL MEDS WHOLE. PLT COUNT STILL AT 1051 THIS AM. ON 3 LITERS OF O2, HAS TO WEAR IT IN HIS MOUTH MOST OF THE TIME. DYSPNEA WITH MOVEMENT. NO PAIN NOTED. CALL LIGHT IS IN REACH.
--- NOTE | 2020-06-08 11:25 | NUR ---
PT/OT ORDERS DR. ALVARADO BELIEVED PATIENT WILL BENEFIT FROM PT/OT TREATMENT AND WOULD LIKE TO HAVE PT/OT SEE PATIENT. RECEIVED V.O. FOR PT/OT EVAL AND TREAT. ORDERS UPDATED.
--- NOTE | 2020-06-08 11:54 | NUR ---
Pt resting in bed and reports mild but manageable pain in his coccyx area. Pt reports developing pressure sores from spending a lot of time in bed prior to hospital stay. Engaged in therapeutic listening as Pt discusses he decision for comfort care. Continued therapeutic listening and answered questions. Pt completed a POLST when his daughter was visiting yesterday evening. Discussed case with Bedside JOSE MANUEL Soto and Dr Tsang. Plan is for Pt to remain comfort care but will provide antibiotics and PT. Dr Tsang signs POLST. Palliative Care will remain avaialble. Will deliver copy of POLST to medical records.
[2020-06-08 16:31] LABS: Vancomycin, Trough 12.7 ug/mL (5.0-10.0)
--- NOTE | 2020-06-08 16:54 | NUR ---
Spiritual care note: Mr. Palomo is pleasant, conversant, and denies needs. He tells me he "just wants to go home" and live the way he wants. He feels well supported/loved by friends/family. Denied fear. Prayer for healing/peace provided. I will remain available.
--- NOTE | 2020-06-08 18:06 | NUR ---
Shift Summary Ornery but cooperative with care. OT evaluated, patient deemed 1p min SBA. Still coughs frequently to PO intake. 3L O2 per NC, this is baseline. TQ2 and prn for comfort. Denies pain, nausea, vomiting. Preventative mepilex to coccyx changed. Independent with urinal. No additional changes. Bed in lowest position, bed alarm on, call light near. WCTM
--- NOTE | 2020-06-08 19:40 | NUR ---
ASSUMED CARE. ANA REPORTS NO CHANGES TODAY, STATES NO PAIN. RESP ARE FAST AND SHALLOW. ASKED IF HE FEELS HE CAN NOT BREATH. STATES HE IS FEELING FINE. HE IS USING HIS ACCESSORY MUSCLES TO BREATH. STILL CALLED RT TO GET A BREATHING TREATMENT FOR HIM. COUGH IS PRODUCTIVE. STILL COUGHING WHEN DRINKING AND EATING. DENIES ANY NEEDS AT THIS TIME. CALL LIGHT IS IN REACH.
[2020-06-09 04:55] LABS: BASOPHILS ABSOLUTE AUTO 0.04 K/mm3 (0.00-0.23); BASOPHILS PERCENT AUTO 0 % (0-2); EOSINOPHILS ABSOLUTE AUTO 0.01 K/mm3 (0.00-0.68); EOSINOPHILS PERCENT AUTO 0 % (0-6); Hematocrit 37.1 % (37.0-53.0); Hemoglobin 11.3 g/dL (13.5-17.5); IMMATURE GRAN ABSOLUTE AUTO 0.57 K/mm3 (0.00-0.10); IMMATURE GRAN PERCENT AUTO 2 % (0-1); LYMPHOCYTES ABSOLUTE AUTO 0.63 K/mm3 (0.84-5.20); LYMPHOCYTES PERCENT AUTO 3 % (21-46); MONOCYTES ABSOLUTE AUTO 0.97 K/mm3 (0.16-1.47); MONOCYTES PERCENT AUTO 4 % (4-13); Mean Corpuscular HGB 28.6 pg (26.0-34.0); Mean Corpuscular HGB Conc 30.5 g/dL (31.5-36.5); Mean Corpuscular Volume 94 fL (80-100); Mean Platelet Volume 10.6 fL (9.1-12.4); NEUTROPHILS ABSOLUTE AUTO 21.84 K/mm3 (1.96-9.15); NEUTROPHILS PERCENT AUTO 91 % (41-73); RDW Coefficient Variation 13.9 % (11.7-14.2); RDW Standard Deviation 47.7 fL (35.1-46.3); Red Blood Cell Count 3.95 M/mm3 (4.30-5.90); White Blood Cell Count 24.06 K/mm3 (4.00-11.30)
[2020-06-09 04:57] LABS: Platelet Count 1135 K/mm3 (150-400)
--- NOTE | 2020-06-09 06:12 | NUR ---
SHIFT SUMMARY: COMFORT CARE WIHT MEDICAL TREATMENT. HE HAD INCREASE IN RESPIRATION AND SOB AT START OF SHIFT, USING ACCESSORY MUSCLES BUT THIS RESOLVED AFTER BREATHING TREATMENT. THE ENTIRE TIME HE SAID HE FELT FINE. IV IN RIGHT FA WAS DC'D DUE TO PAIN. LEFT AC STILL PATENT AND HAS INFUSED ANTIBOTICS THIS SHIFT. HUMITIFER APPLIED TO OXYGEN OF 5 LITERS DUE TO DRYNESS IN NASAL PASSAGES. GOOD URINE OUTPUT. NO PAIN OR OTHER ACUTE CHANGES. PLATLET COUNT HAS INCREASED TO 1135. WBC 24.06. CALL LIGHT IS IN EACH.
--- NOTE | 2020-06-09 11:23 | NUR ---
Pt resting in bed upon arrival. This RN accompanied by student dean Iraida. Pt appears dyspneic as evidenced by work of breathing and increased respiratory rate. Pt suggests increased dyspnea is due to attempting new breathing exercises. Dr Tsang in to examine Pt. Increased oxygen to 6 L per V/O from Dr Tsang. Discussed case with Dr Tsang outside of Pt's room. Placed order for Roxanol SL 5-10mg Q 3 hours PRN for air hunger. Spoke with Bedside RN Jihan and discussed case. Palliative Care will remain available for symptom management and supportive visits.
[2020-06-09 16:28] LABS: Vancomycin, Trough 16.6 ug/mL (5.0-10.0)
--- NOTE | 2020-06-09 19:16 | NUR ---
SHIFT SUMMARY: ON COMFORT CARE. DENIED PAIN. DYSPNEIC AT REST AT TIMES; ROXANOL ORDERED FOR AIR HUNGER, BUT PATIENT DECLINES WHEN OFFERED. USING URINAL, NO BM THIS SHIFT. OXYGEN INCREASED TO 6 L/MIN NC PER RT. HAS DIFFICULTY SWALLOWING PILLS, EATING ABOUT 50% OF MEALS. DAUGHTER VISITED THIS AFTERNOON.
--- NOTE | 2020-06-10 05:13 | NUR ---
FITNESS ATTENDANT SUMMARY NO ACUTE CHANGES THIS SHIFT. PT AAOX4 AND PLEASANT. STANDBY ASSIST TO THE BSC. CONTINUES ON COMFORT CARE. DENIES PAIN. ON 6L O2 VIA HUMIDIFIED NC. HAS SLEPT OFF/ON THROUGH THE NIGHT WITH NO COMPLAINTS. WILL CONTINUE TO MONITOR.
--- NOTE | 2020-06-10 10:23 | NUR ---
Pt resting in bed upon arrival with his eyes closed. Pt apears comfortable with no S/S of distress at this time. This RN did not disturb Pt at this time. Spoke with Bedside RN Jihan, no concerns reported at this time. Palliative Care will remain available.
--- NOTE | 2020-06-10 19:24 | NUR ---
SHIFT SUMMARY: ON COMFORT CARE. DENIED PAIN. HAVING MORALES, COUGHING WITH PO INTAKE. O2 @ 6 L/MIN NC HUMIDIFIED. HAD VISIT FROM HIS SON TODAY. NO ACUTE EVENTS.
[2020-06-11 04:35] LABS: Hematocrit 39.4 % (37.0-53.0); Hemoglobin 12.1 g/dL (13.5-17.5); Mean Corpuscular HGB 29.4 pg (26.0-34.0); Mean Corpuscular HGB Conc 30.7 g/dL (31.5-36.5); Mean Corpuscular Volume 96 fL (80-100); Mean Platelet Volume 10.3 fL (9.1-12.4); RDW Coefficient Variation 14.1 % (11.7-14.2); RDW Standard Deviation 49.2 fL (35.1-46.3); Red Blood Cell Count 4.12 M/mm3 (4.30-5.90); White Blood Cell Count 22.71 K/mm3 (4.00-11.30)
[2020-06-11 04:39] LABS: Platelet Count 1178 K/mm3 (150-400)
[2020-06-11 04:59] LABS: Alanine Aminotransfer (ALT/SGP 19 U/L (12-78); Albumin, Blood 2.6 g/dL (3.4-5.0); Alk Phos 63 U/L (50-136); Anion Gap 1 mmol/L (6-16); Aspartate Aminotrans (AST/SGOT 16 U/L (12-37); Bilirubin, Total 0.3 mg/dL (0.1-1.0); Blood Urea Nitrogen 21 mg/dL (8-24); Bun/Creatinine Ratio 33.2 (12.0-20.0); CO2, Blood 38 mmol/L (21-32); Calcium, Blood 8.1 mg/dL (8.5-10.1); Chloride, Blood 100 mmol/L (98-108); Creatinine, Blood 0.63 mg/dL (0.60-1.20); Globulin, Blood 2.7 g/dL (2.2-4.0); Glomerular Filtration Rate >60 (60-); Glucose, Blood 89 mg/dL (70-99); Magnesium, Blood 2.5 mg/dL (1.6-2.4); Phosphorus, Blood 2.3 mg/dL (2.5-4.9); Sodium, Blood 139 mmol/L (136-145); Total Protein, Blood 5.3 g/dL (6.4-8.2)
--- NOTE | 2020-06-11 05:53 | NUR ---
LABORATORY SPECIALIST SUMMARY NO ACUTE CHANGES THIS SHIFT. PT AAOX3 AND PLEASANT. REMAINS ON COMFORT CARE MEASURES. DENIES PAIN, SOB, N/V. STILL ON 6L O2 VIA NC. PT HOPEFUL TO BE DISCHARGED HOME THIS WEEKEND. WILL CONTINUE TO MONITOR.
[2020-06-11 16:43] LABS: Vancomycin, Trough 19.1 ug/mL (5.0-10.0)
--- NOTE | 2020-06-11 17:53 | NUR ---
Shift Summary A/Ox3, pleasant and cooperative. Worked with PT, tolerated this well. Calls appropriately. Still continues to cough with food. Family has been bringing in candy bars and cookies for patient. Currently on 5L with sats at 98%. Will attempt to titrate down to baseline of 3L as tolerated. 1p min assist c FWW. No acute changes. Remains on comfort care. WCTM
--- NOTE | 2020-06-11 19:17 | NUR ---
AWAKE. JOKES WITH NURSE. CALL LIGHT IN REACH
--- NOTE | 2020-06-11 21:48 | NUR ---
WATCHING TV. HOB REMAINS ELEVATED FOR BREATHING COMFORT. CALL LIGHT IN REACH
--- NOTE | 2020-06-11 21:49 | NUR ---
AWAKE. IV ANTIBIOTICS INFUSING. NO C/O VOICED. CALL LIGHT IN REACH
--- NOTE | 2020-06-11 23:45 | NUR ---
RESTING QUIETLY. CALL LIGHT IN REACH
--- NOTE | 2020-06-12 03:25 | NUR ---
SHIFT SUMMARY HAS BEEN RESTING QUIETLY WITH FEW INTERRUPTIONS SINCE HS. OCCASIONAL COUGH. IV ANTIBIOTICS INFUSING PER MD ORDERS - SEE MAR FOR DETAILS. CALL LIGHT IN REACH.
[2020-06-12 04:40] LABS: BASOPHILS ABSOLUTE AUTO 0.06 K/mm3 (0.00-0.23); BASOPHILS PERCENT AUTO 0 % (0-2); EOSINOPHILS ABSOLUTE AUTO 0.19 K/mm3 (0.00-0.68); EOSINOPHILS PERCENT AUTO 1 % (0-6); Hematocrit 36.6 % (37.0-53.0); Hemoglobin 11.2 g/dL (13.5-17.5); IMMATURE GRAN ABSOLUTE AUTO 0.65 K/mm3 (0.00-0.10); IMMATURE GRAN PERCENT AUTO 3 % (0-1); LYMPHOCYTES ABSOLUTE AUTO 1.35 K/mm3 (0.84-5.20); LYMPHOCYTES PERCENT AUTO 6 % (21-46); MONOCYTES ABSOLUTE AUTO 0.93 K/mm3 (0.16-1.47); MONOCYTES PERCENT AUTO 4 % (4-13); Mean Corpuscular HGB 28.9 pg (26.0-34.0); Mean Corpuscular HGB Conc 30.6 g/dL (31.5-36.5); Mean Corpuscular Volume 95 fL (80-100); Mean Platelet Volume 10.2 fL (9.1-12.4); NEUTROPHILS ABSOLUTE AUTO 20.64 K/mm3 (1.96-9.15); NEUTROPHILS PERCENT AUTO 87 % (41-73); RDW Coefficient Variation 14.2 % (11.7-14.2); RDW Standard Deviation 49.2 fL (35.1-46.3); Red Blood Cell Count 3.87 M/mm3 (4.30-5.90); White Blood Cell Count 23.82 K/mm3 (4.00-11.30)
[2020-06-12 04:44] LABS: Platelet Count 1110 K/mm3 (150-400)
--- NOTE | 2020-06-12 04:48 | NUR ---
RESTING QUIETLY. CALL LIGHT IN REACH
--- NOTE | 2020-06-12 04:48 | NUR ---
RESTING QUIETLY. CALL LIGHT IN REACH
--- NOTE | 2020-06-12 04:49 | NUR ---
AWAKENED FOR BLOOD DRAW, IV ANTIBIOTICS INFUSING PER MD ORDERS -SEE MAR FOR DETAILS. CALL LIGHT IN REACH
[2020-06-12 04:57] LABS: Anion Gap 4 mmol/L (6-16); Blood Urea Nitrogen 22 mg/dL (8-24); Bun/Creatinine Ratio 36.5 (12.0-20.0); CO2, Blood 35 mmol/L (21-32); Calcium, Blood 7.7 mg/dL (8.5-10.1); Chloride, Blood 100 mmol/L (98-108); Glomerular Filtration Rate >60 (60-); Glucose, Blood 120 mg/dL (70-99); Magnesium, Blood 2.3 mg/dL (1.6-2.4); Phosphorus, Blood 2.1 mg/dL (2.5-4.9); Potassium, Blood 4.2 mmol/L (3.5-5.5); Sodium, Blood 139 mmol/L (136-145)
--- NOTE | 2020-06-12 06:09 | NUR ---
WATCHING TV, DRINKING COFFEE. CALL LIGHT IN REACH
--- NOTE | 2020-06-12 06:19 | NUR ---
AWAKE, REQUESTING BREATHING TREATMENT, RT NOTIFIED AND WILL BE UP SOON. CALL LIGHT IN REACH
[2020-06-12] MEDS ORDERED: HYDURE500 PO (12:36)
[2020-06-12] MEDS ORDERED: GUAI600T33 PO (12:36)
[2020-06-12] MEDS ORDERED: MORP20L SL (12:37)
[2020-06-12] MEDS ORDERED: NICO21TP TOP (12:37)
[2020-06-12] MEDS ORDERED: PRED20 PO (12:37)
[2020-06-12] MEDS ORDERED: OMEP20ER PO (12:38)
[2020-06-12] MEDS ORDERED: IPRAT-ALBUT 0.5-3 ML INH (12:38)
--- NOTE | 2020-06-12 15:15 | NUR ---
Shift Summary Patient discharging to home with HH. Reviewed discharge paperwork with patient and daughter at bedside, copy provided. Meds faxed to preferred pharmacy. Personal belongings sent home. SUB PLANT MANAGER will escort via w/c once patient ready. Patient calls appropriately for needs and has not attempted to climb oob by self. Oxygen titrated to baseline of 3L per NC with sats at 92%. Bandage to coccyx changed. Had 2 formed/soft bm's today. Denies pain. No changes with status.
== END 2020-06-12 15:44 | disposition home health service (06) | DRG 177 ==
LOC: ER 12:59 → PCU 15:21 → MEDS 06-07 22:01
PROVIDERS: Emergency Medicine; Pharmacist; ADMIT Family Medicine
DX: J69.0 Pneumonitis due to inhalation of food and vomit (principal); J96.21 Acute and chronic respiratory failure with hypoxia; J44.0 Chronic obstructive pulmonary disease with (acute) lower respiratory infection; R65.10 Systemic inflammatory response syndrome (SIRS) of non-infectious origin without acute organ dysfunction; J18.9 Pneumonia, unspecified organism; D47.3 Essential (hemorrhagic) thrombocythemia; E87.6 Hypokalemia; F17.210 Nicotine dependence, cigarettes, uncomplicated; J43.9 Emphysema, unspecified; F10.10 Alcohol abuse, uncomplicated; L89.309 Pressure ulcer of unspecified buttock, unspecified stage; Z51.5 Encounter for palliative care
CPT/HCPCS: 0241U; 36415; 71045; 71046; 71250; 80048; 80053; 80202; 81001; 82565; 83605; 83735; 84100; 84145; 84484; 85025; 85027; 87040; 92610; 93005; 93010; 94640; 94760; 94762; 96365; 96374-59; 97110; 97116; 97162; 97165; 97530; 99285-25; A9270; J0456; J0696; J1650; J2543; J2920; J3370; J7030; J7050; J7512; Q2038

== ENCOUNTER → 2020-06-23 | Outpatient (CLI) | payer OTHER ==
[~2020-06-23] MED LIST changes: +ALBU8HFA2 INH; +AZIT250 PO; +Acetaminophen325 M1 PO; +BISA10S PR; +CEFP200 PO; +COLACE100 MG PO; +DILT30 PO; +GUAI600T33 PO; +IPRAT-ALBUT 0.5-3 ML INH; +MORP20L SL; +NICO21TP TOP; +OMEP20ER PO; +ONDA4ODT MM; +PRED20 PO; +SENN187 PO; +VISBIOME 112.51 EACH PO
[2020-06-23 18:05] LABS: BASOPHILS ABSOLUTE AUTO 0.11 K/mm3 (0.00-0.23); BASOPHILS PERCENT AUTO 1 % (0-2); EOSINOPHILS ABSOLUTE AUTO 0.18 K/mm3 (0.00-0.68); EOSINOPHILS PERCENT AUTO 1 % (0-6); Hematocrit 37.3 % (37.0-53.0); Hemoglobin 11.9 g/dL (13.5-17.5); IMMATURE GRAN ABSOLUTE AUTO 0.04 K/mm3 (0.00-0.10); IMMATURE GRAN PERCENT AUTO 0 % (0-1); LYMPHOCYTES ABSOLUTE AUTO 0.89 K/mm3 (0.84-5.20); LYMPHOCYTES PERCENT AUTO 5 % (21-46); MONOCYTES ABSOLUTE AUTO 0.25 K/mm3 (0.16-1.47); MONOCYTES PERCENT AUTO 2 % (4-13); Mean Corpuscular HGB 29.9 pg (26.0-34.0); Mean Corpuscular HGB Conc 31.9 g/dL (31.5-36.5); Mean Corpuscular Volume 94 fL (80-100); Mean Platelet Volume 9.7 fL (9.1-12.4); NEUTROPHILS ABSOLUTE AUTO 15.12 K/mm3 (1.96-9.15); NEUTROPHILS PERCENT AUTO 91 % (41-73); Platelet Count 641 K/mm3 (150-400); RDW Coefficient Variation 15.5 % (11.7-14.2); RDW Standard Deviation 51.4 fL (35.1-46.3); Red Blood Cell Count 3.98 M/mm3 (4.30-5.90); White Blood Cell Count 16.59 K/mm3 (4.00-11.30)
== END | disposition home or self-care (01) ==
LOC: PLD 14:10 → LAB SHORT 14:10
PROVIDERS: Internal Medicine Hematology & Oncology
DX: D47.3 Essential (hemorrhagic) thrombocythemia (principal)
CPT/HCPCS: 85025

== ENCOUNTER → 2020-07-04 | Outpatient (CLI) | payer OTHER ==
[2020-07-04 12:33] LABS: BASOPHILS ABSOLUTE AUTO 0.07 K/mm3 (0.00-0.23); BASOPHILS PERCENT AUTO 1 % (0-2); EOSINOPHILS ABSOLUTE AUTO 0.22 K/mm3 (0.00-0.68); EOSINOPHILS PERCENT AUTO 3 % (0-6); Hematocrit 35.1 % (37.0-53.0); Hemoglobin 11.2 g/dL (13.5-17.5); IMMATURE GRAN ABSOLUTE AUTO 0.08 K/mm3 (0.00-0.10); IMMATURE GRAN PERCENT AUTO 1 % (0-1); LYMPHOCYTES ABSOLUTE AUTO 0.72 K/mm3 (0.84-5.20); LYMPHOCYTES PERCENT AUTO 8 % (21-46); MONOCYTES ABSOLUTE AUTO 0.52 K/mm3 (0.16-1.47); MONOCYTES PERCENT AUTO 6 % (4-13); Mean Corpuscular HGB 30.9 pg (26.0-34.0); Mean Corpuscular HGB Conc 31.9 g/dL (31.5-36.5); Mean Corpuscular Volume 97 fL (80-100); Mean Platelet Volume 10.5 fL (9.1-12.4); NEUTROPHILS ABSOLUTE AUTO 7.06 K/mm3 (1.96-9.15); NEUTROPHILS PERCENT AUTO 82 % (41-73); Platelet Count 435 K/mm3 (150-400); RDW Coefficient Variation 18.6 % (11.7-14.2); RDW Standard Deviation 51.7 fL (35.1-46.3); Red Blood Cell Count 3.63 M/mm3 (4.30-5.90); White Blood Cell Count 8.67 K/mm3 (4.00-11.30)
== END | disposition home or self-care (01) ==
LOC: PLD 11:20 → LAB SHORT 11:20
PROVIDERS: Family Medicine
DX: J43.9 Emphysema, unspecified (principal)
CPT/HCPCS: 85025

== ENCOUNTER 2020-07-05 14:57 | Inpatient (IN) | payer OTHER ==
[~2020-07-05] VITALS: Ht 180.3 cm; Wt 29.0 kg
[~2020-07-05 14:57] MED LIST changes: -ALBU8HFA2 INH; -AZIT250 PO; -Acetaminophen325 M1 PO; -BISA10S PR; -CEFP200 PO; -COLACE100 MG PO; -DILT30 PO; -ONDA4ODT MM; -SENN187 PO; -VISBIOME 112.51 EACH PO
[2020-07-05 15:53] LABS: BASOPHILS ABSOLUTE AUTO 0.08 K/mm3 (0.00-0.23); BASOPHILS PERCENT AUTO 1 % (0-2); EOSINOPHILS ABSOLUTE AUTO 0.23 K/mm3 (0.00-0.68); EOSINOPHILS PERCENT AUTO 2 % (0-6); Hematocrit 35.3 % (37.0-53.0); Hemoglobin 11.7 g/dL (13.5-17.5); IMMATURE GRAN ABSOLUTE AUTO 0.06 K/mm3 (0.00-0.10); IMMATURE GRAN PERCENT AUTO 1 % (0-1); LYMPHOCYTES ABSOLUTE AUTO 0.82 K/mm3 (0.84-5.20); LYMPHOCYTES PERCENT AUTO 7 % (21-46); MONOCYTES PERCENT AUTO 9 % (4-13); Mean Corpuscular HGB 31.2 pg (26.0-34.0); Mean Corpuscular HGB Conc 33.1 g/dL (31.5-36.5); Mean Corpuscular Volume 94 fL (80-100); Mean Platelet Volume 10.1 fL (9.1-12.4); NEUTROPHILS ABSOLUTE AUTO 9.16 K/mm3 (1.96-9.15); NEUTROPHILS PERCENT AUTO 81 % (41-73); Platelet Count 620 K/mm3 (150-400); RDW Coefficient Variation 19.1 % (11.7-14.2); Red Blood Cell Count 3.75 M/mm3 (4.30-5.90); White Blood Cell Count 11.35 K/mm3 (4.00-11.30)
[2020-07-05 17:33] LABS: Alanine Aminotransfer (ALT/SGP 12 U/L (12-78); Albumin, Blood 3.2 g/dL (3.4-5.0); Albumin/Globulin Ratio 0.9 (0.8-1.8); Alk Phos 71 U/L (50-136); Anion Gap 3 mmol/L (6-16); Aspartate Aminotrans (AST/SGOT 9 U/L (12-37); Bilirubin, Total 0.9 mg/dL (0.1-1.0); Blood Urea Nitrogen 30 mg/dL (8-24); Bun/Creatinine Ratio 51.7 (12.0-20.0); CO2, Blood 33 mmol/L (21-32); Calcium, Blood 8.6 mg/dL (8.5-10.1); Chloride, Blood 101 mmol/L (98-108); Creatinine, Blood 0.58 mg/dL (0.60-1.20); Globulin, Blood 3.5 g/dL (2.2-4.0); Glomerular Filtration Rate >60 (60-); Glucose, Blood 97 mg/dL (70-99); Sodium, Blood 137 mmol/L (136-145); Total Protein, Blood 6.7 g/dL (6.4-8.2); Troponin I <0.015 ng/mL (0.000-0.040)
[2020-07-05 20:04] LABS: PCO2 Arterial 47.4 mmHg (35-45); PO2 Arterial 111 mmHg (80-100)
[2020-07-06 02:42] LABS: Influenza A, PCR NEGATIVE (NEGATIVE); Influenza B, PCR NEGATIVE (NEGATIVE); Resp Syncytial Virus, PCR NEGATIVE (NEGATIVE); SARS-Cov-2 (COVID-19) PCR, MMC NEGATIVE (NEGATIVE)
[2020-07-06 05:30] LABS: BASOPHILS ABSOLUTE AUTO 0.06 K/mm3 (0.00-0.23); BASOPHILS PERCENT AUTO 1 % (0-2); EOSINOPHILS ABSOLUTE AUTO 0.19 K/mm3 (0.00-0.68); EOSINOPHILS PERCENT AUTO 3 % (0-6); Hematocrit 29.4 % (37.0-53.0); Hemoglobin 9.5 g/dL (13.5-17.5); IMMATURE GRAN ABSOLUTE AUTO 0.03 K/mm3 (0.00-0.10); IMMATURE GRAN PERCENT AUTO 1 % (0-1); LYMPHOCYTES PERCENT AUTO 16 % (21-46); MONOCYTES ABSOLUTE AUTO 0.64 K/mm3 (0.16-1.47); MONOCYTES PERCENT AUTO 10 % (4-13); Mean Corpuscular HGB 30.9 pg (26.0-34.0); Mean Corpuscular HGB Conc 32.3 g/dL (31.5-36.5); Mean Corpuscular Volume 96 fL (80-100); NEUTROPHILS ABSOLUTE AUTO 4.36 K/mm3 (1.96-9.15); NEUTROPHILS PERCENT AUTO 69 % (41-73); Platelet Count 433 K/mm3 (150-400); RDW Standard Deviation 50.6 fL (35.1-46.3); Red Blood Cell Count 3.07 M/mm3 (4.30-5.90); White Blood Cell Count 6.28 K/mm3 (4.00-11.30)
[2020-07-06 05:47] LABS: Alanine Aminotransfer (ALT/SGP 9 U/L (12-78); Albumin, Blood 2.5 g/dL (3.4-5.0); Alk Phos 53 U/L (50-136); Anion Gap 4 mmol/L (6-16); Aspartate Aminotrans (AST/SGOT 7 U/L (12-37); Bilirubin, Total 0.4 mg/dL (0.1-1.0); Blood Urea Nitrogen 24 mg/dL (8-24); Bun/Creatinine Ratio 42.3 (12.0-20.0); CO2, Blood 31 mmol/L (21-32); Calcium, Blood 7.9 mg/dL (8.5-10.1); Chloride, Blood 106 mmol/L (98-108); Creatinine, Blood 0.57 mg/dL (0.60-1.20); Globulin, Blood 2.6 g/dL (2.2-4.0); Glomerular Filtration Rate >60 (60-); Glucose, Blood 79 mg/dL (70-99); Potassium, Blood 3.8 mmol/L (3.5-5.5); Sodium, Blood 141 mmol/L (136-145); Total Protein, Blood 5.1 g/dL (6.4-8.2)
--- NOTE | 2020-07-06 05:52 | NUR ---
MEDICAL ADMIT PT MEDICAL NO TELE STATUS, BROUGHT TO PCU-16 BY JOSEF FROM ER @ APPROX 0500. PT SLID OVER FROM JOSEF TO PCU BED BY 3 STAFF MEMBERS. PT A&O X4. VSS. SPO2 > 92% ON 4L NC WHICH PT REPORTS BEING HOME BASELINE. PT REPORTS HAVING FULL DENTURES THAT ARE AT HOME. PT ALSO REPORTS NEEDING GLASSES BUT STATES HAVING LOST HIS GLASSES PRIOR TO ADMIT & STATES HAVING AN UPCOMING APPOINTMENT FOR A NEW PAIR. OPEN PRESSURE ULCER NOTED TO COCCYX. WOUND PHOTO TAKEN W/ PT CONSENT & SITE DRESSED W/ MEPILEX DRESSING. NS GTT INFUSING PER ORDERS. WILL CONTINUE TO MONITOR & PROVIDE CARE UNTIL REPORT OFF TO DAY SHIFT RN.
--- NOTE | 2020-07-06 10:33 | NUR ---
SPOKE TO DR ALVARADO ON MORNING ROUNDS- PT HAS PRN MEDICATION FOR HR GREATER THAN 110, BUT NO TELE ORDER. RECIEVED ORDER FOR TELE. TELE BOX PLACED PT RUNNING WAP (WANDERING ATRIAL PACED) AT 80 AT THE TIME OF TELE PLACEMENT.
--- NOTE | 2020-07-06 11:55 | NUR ---
TELEPHONE REPORT COMPLETED WITH JOSE MANUEL Puente. PT TO TRANSFER TO MEDICAL FLOOR ROOM 356 WITH TELE AT THIS TIME. PALLIATIVE CARE JUST MET WITH THE PT. PT DAUGHTER CALLED AND STATED SHE THINKS HOSPICE IS THE NEXT STEP FOR THE PT. SHE WAS TEARFUL AND STATED SHE DOES NOT WANT TO TALK TO THE PT ABOUT IT FOR FEAR HE MAY THINK SHE IS "GIVING UP ON HIM." PASSED THIS ON TO THE PALLIATIVE CARE TEAM. ALL PASSED ON IN TELEPHONE REPORT.
--- NOTE | 2020-07-06 12:57 | NUR ---
Pt resting in bed upon arrival. Pt is known to this promotion writer from previous hospital stay. Pt denies pain at this time. Pt reports SOB has improved since arriving to the hospital. Engaged in therapeutic conversation regarding goals of care. Listened as Pt reports still not caring to come to the hospital. Discussed hospice as an option and educated on hospice philosophy. Pt reports wishes for hospice and is agreeable with this RN to speak with his daughter regarding his wishes. Pt reports no concerns at this time. Spoke with Bedside RN Justa and discussed case. Called and spoke with Pt's daughter Marva. Engaged in therapeutic discussion and relayed Pt's wishes. Listened as Marva reports family has been considering this option and is grateful for this RN opening conversation with Pt. Educated on hospice philosophy and answered questions. Marva reports Pt is currently receiving services with [facility] and is agreeable for [facility]. Discussed the importance of Pt and family considering the need for caregiver support as disease process takes it coarse. Marva reports she has been checking in on Pt multiple times a day and would be willing to move Pt in with her but does not think Pt would be agreeable with living with her. Continued therapeutic listening. No other concerns reported at this time. Family agreeable to continue current plan of care until Pt D/C home with hospice. Placed Hospice Referral for [facility]. Palliative Care will remain available for supportive visits.
--- NOTE | 2020-07-06 15:43 | NUR ---
ADVISED PATIENT TAKES GUAFENESIN FOR MUCOUS. ORDER 1200 BID.
--- NOTE | 2020-07-06 17:34 | NUR ---
RECEIVED PATIENT FROM PCU AROUND 1230. ALERT. ORIENTED. LUNGS COARSE. IV RT F.A. TAKES MEDS WHOLE IN APPLESAUCE. HX SEVERE DYSPHGIA WITH RECOMMEND NPO, BUT IT SEEMS PATIENT MAY GO COMFORT CARE AND WISHES TO EAT KNOWING THE POSSIBLITY OF ASPIRATION (AGAIN). ADMITTED FOR YAJAIRA PNE DUE TO ASPIRATION. MD HAS DISCUSSED WITH PATIENT. CACHECTIC LOOKING. MEPILEX TO BOTTOM. TELE ON AND CURRENTLY SR 80. PATIENT HAS MEDS AVAILABLE FOR HIGH HEART RATE.PATIENT LIVES WITH ADULT MALE FRIEND. SON IN FOR VISITING HOURS. [facility]
--- NOTE | 2020-07-07 05:35 | NUR ---
LINING PARTS SEWER SUMMARY PT A&OX4, ABLE TO MAKE NEEDS KNOWN. PLEASANT AND COOPERATIVE TO CARE. NO ACUTE CHANGES NOTED TO PT THIS SHIFT. NO C/O PAIN OR ANY DISCOMFORT THIS SHIFT. DENIES CP, SOB, OR N&V. PT CONT ON 3.5LPM O2 VIA NC, SATS >92%. PT TAKES MEDS 1 AT A TIME W/ APPLESAUCE. PT USES URINAL INDEPENDENTLY IN BED, DENIES DYSURIA. PT CALM AND RESTED IN BED T/O SHIFT. BED IN LOWEST POSITION, CALL LIGHT WITHIN REACH.
[2020-07-07] MEDS ORDERED: Acetaminophen325 M1 PO (10:52)
[2020-07-07] MEDS ORDERED: ALBU8HFA2 INH (10:53)
[2020-07-07] MEDS ORDERED: AZIT250 PO (10:54)
[2020-07-07] MEDS ORDERED: BISA10S PR (10:54)
[2020-07-07] MEDS ORDERED: CEFP200 PO (10:55)
[2020-07-07] MEDS ORDERED: DILT30 PO (10:56)
[2020-07-07] MEDS ORDERED: COLACE100 MG PO (10:57)
[2020-07-07] MEDS ORDERED: GUAI600T33 PO (10:57)
[2020-07-07] MEDS ORDERED: ONDA4ODT MM (10:58)
[2020-07-07] MEDS ORDERED: PRED20 PO (10:59)
[2020-07-07] MEDS ORDERED: SENN187 PO (10:59)
[2020-07-07] MEDS ORDERED: VISBIOME 112.51 EACH PO (11:00)
--- NOTE | 2020-07-07 12:12 | NUR ---
DISCHARGE NOTE PT DISCHARGED TO HOME ON HOME HEALTH WITH HOSPICE STARTING SATURDAY, SEE WATER COMMISSIONER NOTE. PT LEFT ROOM VIA WHEELCHAIR WITH TIMING INSPECTOR ESCORT JUST PRIOR TO THIS NOTE. PT AND SON EDUCATED ABOUT ALL DISCHARGE INSTRUCTIONS, ALL QUESTIONS ANSWERED. PT'S SON AGREES TO NOC ENGINEER PRESCRIPTIONS. IV DC'D AND BELONGINGS RETURNED.
== END 2020-07-07 12:02 | disposition home health service (06) | DRG 193 ==
LOC: ER 14:57 → MEDS 23:33 → ERHOLD 23:33 → PCU 07-06 05:04 → MEDS 07-06 12:05
PROVIDERS: Emergency Medicine; ADMIT Internal Medicine
DX: J18.9 Pneumonia, unspecified organism (principal); J96.21 Acute and chronic respiratory failure with hypoxia; E43 Unspecified severe protein-calorie malnutrition; R64 Cachexia; Z68.1 Body mass index [BMI] 19.9 or less, adult; I48.91 Unspecified atrial fibrillation; Z66 Do not resuscitate; Z51.5 Encounter for palliative care; Z99.81 Dependence on supplemental oxygen; D47.3 Essential (hemorrhagic) thrombocythemia; J43.9 Emphysema, unspecified; R13.10 Dysphagia, unspecified; F17.210 Nicotine dependence, cigarettes, uncomplicated
CPT/HCPCS: 0241U; 36415; 36600; 71045; 71260; 80053; 82803; 83605; 83735; 83880; 84484; 85025; 85379; 87040; 93005; 93010; 94640; 94760; 96361; 96365-59; 96367; 96372; 96375-59; 99285-25; A9270; J0456; J0696; J1650; J7030; J7050; J7120; J7512; Q9967